=== PATIENT | male | born 1990 | race Two or more races ===

== ENCOUNTER 2025-05-09 09:34 | Emergency (ER) | payer SELFPAY ==
[~2025-05-09] VITALS: Ht 152.4 cm; Wt 98.0 kg
--- NOTE | 2025-05-09 10:41 | ED.PDOC ---
Back pain HPI HPI Comments This is a 34 year old male presenting to the ED with chief complaint of back pain. Patient reports that he has been experiencing left lower back pain for the past 6 days, worsening over time. Patient relays that his pain radiates down his left leg and is worsened when getting up. Patient denies any numbness, weakness, tingling, fall, or injury. Chief Complaint: Back Pain Time Seen by MD: 10:34 Reviewed Notes: Nurses Notes, Medications, Allergies Allergies: Coded Allergies: NO KNOWN ALLERGIES (Unverified , 05/09/25) Information Source: Patient Mode of Arrival: Ambulatory Timing: Days Duration: Since onset Location of Back pain: (L) Lumbar Severity: Moderate Prehospital treatment: None Quality: Aching Onset: Spontaneous Modifying Factors: Nothing Past Medical History PAST MEDICAL HISTORY: Denies Surgical History: Denies all surgeries Family History Family History: Reviewed,noncontributory to illness Social History Smoker: Non-Smoker Alcohol: Denies ETOH Use Drugs: Denies Drug Use Lives In: Home Constitutional: denies: chills, diaphoresis, fatigue, fever, malaise, sweats, weakness, others EENTM: denies: blurred vision, double vision, ear bleeding, ear discharge, ear drainage, ear pain, ear ringing, eye pain, eye redness, hearing loss, mouth pain, mouth swelling, nasal discharge, nose bleeding, nose congestion, nose pain, photophobia, tearing, throat pain, throat swelling, voice changes, others Respiratory: denies: cough, hemoptysis, orthopnea, SOB at rest, shortness of breath, SOB with excertion, stridor, wheezing, others Cardiovascular: denies: chest pain, dizzy spells, diaphoresis, Dyspnea on exertion, edema, irregular heart beat, left arm pain, lightheadedness, palpitations, PND, syncope, others Gastrointestinal: denies: abdomen distended, abdominal pain, blood streaked bowels, constipated, diarrhea, dysphagia, difficulty swallowing, hematemesis, melena, nausea, poor appetite, poor fluid intake, rectal bleeding, rectal pain, vomiting, others Genitourinary: denies: burning, dysuria, flank pain, frequency, hematuria, incontinence, penile discharge, penile sore, pain, testicle pain, testicle swelling, urgency, others Neurological: denies: dizziness, fainting, headache, left sided numbness, left sided weakness, numbness, paresthesia, pre-existing deficit, right sided numbness, right sided weakness, seizure, speech problems, tingling, tremors, weakness, others Musculoskeletal: reports: back pain; denies: gout, joint pain, joint swelling, muscle pain, muscle stiffness, neck pain, others Integumetry: denies: bruises, change in color, change in hair/nails, dryness, laceration, lesions, lumps, rash, wounds, others Allergic/Immunocompromised: denies: Difficulty Healing, Frequent Infections, Hives, Itching, others Hematologic/Lymphatic: denies: anemia, blood clots, easy bleeding, easy bruising, swollen glands, others Endocrine: denies: excessive hunger, excessive sweating, excessive thirst, excessive urination, flushing, intolerance to cold, intolerance to heat, unexplained weight gain, unexplained weight loss, others Psychiatric: denies: anxiety, bipolar disorder, depression, hopeless, panic disorder, schizophrenia, sleepless, suicidal, others All Other Systems: Reviewed and Negative Physical Exam General Appearance: No Apparent Distress, Normal HEENT: Normal ENT Inspection, Pharynx Normal, TMs Normal Neck: Full Range of Motion, Non-Tender, Normal, Normal Inspection Respiratory: Chest Non-Tender, Lungs Clear, No Accessory Muscle Use, No Respiratory Distress, Normal Breath Sounds Cardiovascular: No Edema, No JVD, No Murmur, No Gallop, Normal Peripheral Pulses, Regular Rate/Rhythm Breast Exam: Deferred Gastrointestinal: No Organomegaly, Non Tender, No Pulsatile Mass, Normal Bowel Sounds, Soft Genitalia: Deferred Pelvic: Deferred Rectal: Deferred Extremities: No calf tenderness, Normal capillary refill, Normal inspection, Normal range of motion, Non-tender, No pedal edema Musculoskeletal : Location: Left Extremity Location: Back Apperance: Tenderness (Left L-Spine paraspinal tenderness) Neurologic: Alert, tube cutter II-XII nml as Tested, No Motor Deficits, Normal Affect, Normal Mood, No Sensory Deficits Cerebellar Function: Normal Reflexes: Normal Skin: Dry, Normal Color, Warm Lymphatic: No Adenopathy Was a procedure done? Was a procedure done?: No Back Pain Differential Dx Differential Diagnosis: Musculoskeletal Pain X-Ray, Labs, Meds, VS Vital Signs Date Time Temp Pulse Resp B/P (MAP) Pulse Ox O2 Delivery O2 Flow Rate FiO2 05/09/25 11:50 98.3 74 12 137/89 (105) 96 98.3 05/09/25 11:08 98.6 05/09/25 09:41 Room Air* 0 21 05/09/25 09:39 98.1 82 15 123/84 95 98.1 Current Medications Medications (Trade) Dose Ordered Sig/Nghia Route Start Time Stop Time Status Last Admin Acetaminophen (Tylenol Tablet) 650 mg ONCE ONCE PO 05/09/25 10:45 05/09/25 10:46 DC 05/09/25 11:08 Acetaminophen/ Hydrocodone Bitart ([place] 5/325MG Tab) 1 tab ONCE ONCE PO 05/09/25 10:45 05/09/25 10:46 DC 05/09/25 11:07 Cyclobenzaprine HCl (Flexeril Tablet) 5 mg ONCE ONCE PO 05/09/25 10:45 05/09/25 10:46 DC 05/09/25 11:07 Time of 1ST Reevaluation: 11:34 Reevaluation 1ST: Unchanged Patient Education/Counseling: Diagnosis, Treatment Family Education/Counseling: No Family Present SEPSIS Sepsis Screen Date sepsis recognized/suspect: May 09, 2025 Time Sepsis recognized/suspect: 834 Recent Procedure: No On Antibiotic Therapy: No Respiratory Rate >20: No Heart Rate >90: No Temp<36 C (96.8 F) or >38.3 C: No SBP <90 or MAP <65 mmHG: No New Acute Mental Status Change: No Is the patient on CPAP, BIPAP,: No Physician Orders Lumbar Spine 3 View (05/09/25 10:34) Vital Signs Date Time Temp Pulse Resp B/P (MAP) Pulse Ox O2 Delivery O2 Flow Rate FiO2 05/09/25 11:50 98.3 74 12 137/89 (105) 96 98.3 05/09/25 11:08 98.6 05/09/25 09:41 Room Air* 0 21 05/09/25 09:39 98.1 82 15 123/84 95 98.1 Medications Medications Dose Ordered Sig/Nghia Route Start Time Stop Time Status Last Admin Dose Admin Acetaminophen 650 mg ONCE ONCE PO 05/09/25 10:45 05/09/25 10:46 DC 05/09/25 11:08 Acetaminophen/ Hydrocodone Bitart 1 tab ONCE ONCE PO 05/09/25 10:45 05/09/25 10:46 DC 05/09/25 11:07 Cyclobenzaprine HCl 5 mg ONCE ONCE PO 05/09/25 10:45 05/09/25 10:46 DC 05/09/25 11:07 Departure 1 Departure Time of Disposition: 14:50 (Patient has a Questionable nondisplaced fracture right transverse process of L3.) Impression: Primary Impression: Lumbar strain Additional Impression: L3 vertebral fracture Disposition: HOME / SELF CARE / HOMELESS Condition: Stable Referrals: ALEKSANDRA IVY MD Additional Instructions: Your x-rays show a possible small crack on the side of your L3 vertebra. You were referred to our back doctor. Please call for an appointment. For pain you can take the followinam: Ibuprofen 400mg with food Noon: Acetaminophen 1000mg 4pm: Ibuprofen 400mg with food 8pm: Acetaminophen 1000mg You were also prescribed muscle relaxers. You should follow up with your regular doctor within one week to ensure you are doing better. If your symptoms worsen or you have any other concerns then please return to the ER. e-Prescriptions Cyclobenzaprine Hcl (Cyclobenzaprine Hcl) 10 Mg Tab 10 MG PO TID PRN for 4 Days, #12 TAB Prov: LELE ESTRADA MD 05/09/25 Discharged With: Self Critical Care Note Critical Care Time?: No Stability Stability form required: No Heart Score Heart Score: Heart Score Response (Comments) Value History N/A 0 EKG N/A 0 Age N/A 0 Risk Factors N/A 0 Troponin N/A 0 Total 0 I personally scribed for LELE ESTRADA MD ([email or web address]) on 05/09/25 at 10:41. Electronically submitted by Adriano Posey ([email or web address]). LELE ESTRADA MD May 09, 2025 10:41
[2025-05-09] MEDS: CYCLOBENZAPRINE HCL 10 MG TAB PO ONE (11:07)
[2025-05-09] MEDS: HYDROcodone-ACET 5/325MG TAB PO ONE (11:07)
[2025-05-09] MEDS: ACETAMINOPHEN 325 MG TAB PO ONE (11:08)
--- NOTE | 2025-05-09 11:22 | DVH ---
CLINICAL INDICATION: lower back pain TECHNIQUE: 2 radiographic views of the lumbar spine were obtained. Comparison: None FINDINGS/IMPRESSION: There are no compressed vertebra. Questionable nondisplaced fracture right transverse process of L3.
[2025-05-09] MEDS ORDERED: CYCL-839 PO (14:55)
[2025-05-09 15:04] VITALS: BP 134/91; PULSE 68; RESP 16; TEMP 98.3; O2SAT 99
== END 2025-05-09 15:34 | disposition home or self-care (01) ==
LOC: ER 09:34
DX: S32.039A Unspecified fracture of third lumbar vertebra, initial encounter for closed fracture (principal); S39.012A Strain of muscle, fascia and tendon of lower back, initial encounter; X58.XXXA Exposure to other specified factors, initial encounter; Y93.89 Activity, other specified; Y92.89 Other specified places as the place of occurrence of the external cause; Y99.8 Other external cause status
CPT/HCPCS: 72100